=== PATIENT | female | born 1975 | race Caucasian/White ===

== ENCOUNTER 2016-10-14 13:24 | Emergency (ER) | payer MEDICARE ==
[~2016-10-14] VITALS: Ht 167.6 cm; Wt 115.7 kg
--- NOTE | ~2016-10-14 | CR72 ---
[facility] A Service of [facility] & [facility] RADIOLOGY TEXT RESULTS PATIENT: NONA BAUER LOCATION: [facility] : 73 UNIT #: [id number] AGE: [address]: Singh Nicole MD SEX: F ORDER DR: [id number] [facility] [address] [place], [place] [address] [id number] E MR#: [id number] Acc #: [id number] NAME: NONA BAUER : 1975 SEX: F STUDY DATE/TIME: 10/14/2016 14:09 UNIT: [facility] ROOM: STUDY DESCRIPTION: CR Chest Single View Portable Attending Physician: Singh Nicole M.D. Ordering Physician: Singh Nicole M.D. Primary Care Physician: [facility], [facility]. MEDICAL IMAGING REPORT This report is preliminary unless electronic signature is present EXAM Portable chest INDICATIONS Right-sided chest pain for the past 2 weeks. PROCEDURE Frontal view chest. COMPARISON 01/12/2013 FINDINGS Heart size is stable. The lungs are clear. There is no visible pleural fluid or pneumothorax. IMPRESSION No active process. Dictated by... Elijah Antoine M.D. THIS IS AN ELECTRONICALLY VERIFIED REPORT Elijah Antoine M.D. at 10/16/2016 5:02 PM EED/jack TD: 10/14/2016 23:04 JOB #: [id number] MEDICAL IMAGING REPORT Page 1 of 1 COPY
--- NOTE | ~2016-10-14 | EKG ---
PATIENT: NONA BAUER UNIT #: [id number] Ventricular Rate: 61 BPM Atrial Rate: 61 BPM P-R Interval: 146 ms QRS Duration: 86 ms Q-T Interval: 416 ms QTC Calculation(Bezet): 418 ms P [place]: 33 degrees Calculated R [place]: 66 degrees Calculated T [place]: 2 degrees Diagnosis Line: Normal sinus rhythm Diagnosis Line: Possible Inferior infarct (cited on or before Diagnosis Line: 13-JAN-2013) Diagnosis Line: Abnormal ECG Diagnosis Line: When compared with ECG of 13-JAN-2013 06:12, Diagnosis Line: No significant change was found Diagnosis Line: Confirmed by BENNY TIJERINA MD ([id number]) on Diagnosis Line: 10/15/2016 8:56:46 AM INTERPRETING MD: LILLIANA STANLEY
[~2016-10-14 13:24] MED LIST: ASPIRIN81 MG PO; BIRTH CONTROL PILL PO; CEPHALEXIN 500 MG PO; CIPRO PO; COLACE PO; DICLOFENAC; DICYCLOMINE HCL20 MG PO; FLEXERIL10 M1 PO; HYDROCODON-ACE1 EAC5 PO; HYDROXYZINE25 MG/ML PO; INDOMETHACIN50 MG PO; LORTAB 5/500 TA1 TA1 PO; LORTAB 7.51 TAB 7.5/ PO; MELOXICAM 15 MG PO; NAPROSYN500 MG; NO MEDICATIONS; PREDNISONE PO; PREDNISONE50 MG PO; PROMETHAZINE 25 MG PO; PROTONIX PO; PROZAC PO; PYRIDIUM PO; ROBAXIN500 MG PO; TOPAMAX25 MG PO; TOPAMAX50 MG PO; TOPIRAMATE 25 MG PO; VOLTAREN75 MG PO; ZOLPIDEM 10 MG PO
[2016-10-14 15:20] LABS: POC - CKMB <1.0 ng/mL (0.0-7.9); POC - TROPONIN <0.05 ng/mL (<=0.05)
== END 2016-10-14 15:55 | disposition home or self-care (01) ==
LOC: CED 13:24
PROVIDERS: Emergency Medicine
DX: R07.89 Other chest pain (principal); F32.9 Major depressive disorder, single episode, unspecified
CPT/HCPCS: 36415; 71010; 82553; 84484; 93005; 99285